=== PATIENT | male | born 1955 | race Caucasian/White ===

== ENCOUNTER 2019-01-04 08:19 | Day surgery (SDC) | payer BC ==
[2019-01-04] MEDS ORDERED: MEPERIDINE HCL/PF 100 MG/ML AMP ONE ×2 (08:39→09:31)
[2019-01-04] MEDS ORDERED: MIDAZOLAM HCL 5 MG/5 ML VIAL ONE ×3 (08:40→09:31)
[2019-01-04] MEDS ORDERED: SIMETHICONE 40 MG/0.6 ML ML ONE ×2 (08:40→09:31)
[2019-01-04 13:31] VITALS: BP_SYST 118
== END 2019-01-04 12:14 | disposition home or self-care (01) ==
LOC: SDS 08:19
PROVIDERS: ATTEND Internal Medicine Gastroenterology
DX: Z12.11 Encounter for screening for malignant neoplasm of colon (principal); K62.1 Rectal polyp; K64.8 Other hemorrhoids; I10 Essential (primary) hypertension; R94.5 Abnormal results of liver function studies; Z80.3 Family history of malignant neoplasm of breast
CPT/HCPCS: 45380; 88305; 99152; 99153; G0378; J2175; J2250